=== PATIENT | female | born 1980 | race Caucasian/White ===

== ENCOUNTER 2018-10-24 09:02 | Emergency (ER) | payer BC, OTHER ==
[2018-10-24 10:33] LABS: Basophils % (A) 0 %; Eosinophils # (A) 0.2 k/uL (0-0.7); Eosinophils % (A) 3 %; HCT 39.4 % (34.0-46.0); HGB 12.6 gm/dL (11.4-16.0); Lymphocytes # (A) 1.4 k/uL (1.0-4.8); Lymphocytes % (A) 22 %; MCH 28.5 pg (25.0-35.0); MCHC 31.9 g/dL (31.0-37.0); MCV 89.2 fL (80.0-100.0); Mean Platelet Volume 8.6; Monocytes # (A) 0.3 k/uL (0-1.0); Monocytes % (A) 5 %; Neutrophils # (A) 4.3 k/uL (1.3-7.7); Neutrophils % (A) 68 %; Platelet Count 218 k/uL (150-450); RBC 4.42 m/uL (3.80-5.40); RDW 13.7 % (11.5-15.5); WBC 6.4 k/uL (3.8-10.6)
[2018-10-24 10:44] LABS: ALT 55 U/L (9-52); AST 36 U/L (14-36); Albumin 4.2 g/dL (3.5-5.0); Alkaline Phosphatase 55 U/L (38-126); Anion Gap 6 mmol/L; Blood Urea Nitrogen 12 mg/dL (7-17); Calcium 9.6 mg/dL (8.4-10.2); Carbon Dioxide 27 mmol/L (22-30); Chloride 108 mmol/L (98-107); Glucose 101 mg/dL (74-99); Magnesium 2.1 mg/dL (1.6-2.3); Potassium 4.9 mmol/L (3.5-5.1); Sodium 141 mmol/L (137-145); Total Bilirubin 0.5 mg/dL (0.2-1.3); Total Protein 6.7 g/dL (6.3-8.2)
--- NOTE | 2018-10-24 10:46 | ED ---
Chest Pain HPI - General Chief Complaint: Chest Pain Stated Complaint: chest pain Time Seen by Provider: 10/24/18 09:14 Source: patient, RN notes reviewed Mode of arrival: ambulatory Limitations: no limitations - History of Present Illness Initial Comments: This is a 38-year-old female with a benign past medical history she does have a family history of hypertension who states she's had for last several days intermittent episodes of sharp right-sided chest pain and radiates around to the left side of her chest area and she states was started she will be 4-5/10 severity gets as severe as 8-10/10 and goes away. Stenosis over last several days she does have shortness breath with it comes on she denies any pain right now no fevers chills nausea vomiting sweats no trauma he does state that she was helping her son learn how to ride a bike over this past weekend. She states she did a lot of bending over and twisting. MD Complaint: chest pain - Related Data Previous Rx's Medication Instructions Recorded Cyclobenzaprine [Flexeril] 10 mg PO TID #14 tab 10/24/18 Ketorolac [Toradol] 10 mg PO Q6HR #20 tab 10/24/18 Allergies Allergy/AdvReac Type Severity Reaction Status Date / Time No Known Allergies Allergy Verified 10/24/18 09:39 Review of Systems ROS Statement: Those systems with pertinent positive or pertinent negative responses have been documented in the HPI. ROS Other: All systems not noted in ROS Statement are negative. EKG Findings - EKG Results: EKG: interpreted by JANEL, sinus rhythm (Normal sinus rhythm of 61. Interval 174 QRS duration 12 QT since QTC 4:30/432 this is a normal-appearing EKG.) Past Medical History Past Medical History: No Reported History History of Any Multi-Drug Resistant Organisms: None Reported Past Surgical History: Adenoidectomy, Tonsillectomy Past Psychological History: No Psychological Hx Reported Smoking Status: Never smoker Past Alcohol Use History: None Reported Past Drug Use History: None Reported General Exam - General Exam Comments Initial Comments: This a well-developed well-nourished awake alert oriented 3 female Limitations: no limitations General appearance: alert, in no apparent distress Head exam: Present: atraumatic, normocephalic, normal inspection Eye exam: Present: normal appearance, PERRL, EOMI. Absent: scleral icterus, conjunctival injection, periorbital swelling ENT exam: Present: normal exam, mucous membranes moist Neck exam: Present: normal inspection, full ROM, other (No stridor JVD or bruits). Absent: tenderness, meningismus, lymphadenopathy Respiratory exam: Present: normal lung sounds bilaterally. Absent: respiratory distress, wheezes, rales, rhonchi, stridor Cardiovascular Exam: Present: regular rate, normal rhythm, normal heart sounds. Absent: systolic murmur, diastolic murmur, rubs, gallop, clicks GI/Abdominal exam: Present: soft, normal bowel sounds. Absent: distended, tenderness, guarding, rebound, rigid Extremities exam: Present: normal inspection, full ROM, normal capillary refill. Absent: tenderness, pedal edema, joint swelling, calf tenderness Back exam: Present: normal inspection Neurological exam: Present: alert, oriented X3, CN II-XII intact Psychiatric exam: Present: normal affect, normal mood Skin exam: Present: warm, dry, intact, normal color. Absent: rash Course Vital Signs 10/24/18 10/24/18 10/24/18 09:05 09:23 09:30 Temperature 98 F Pulse Rate 73 69 59 L Respiratory 16 14 11 L Rate Blood Pressure 155/101 136/78 O2 Sat by Pulse 100 98 99 Oximetry 10/24/18 10/24/18 10/24/18 09:37 10:00 10:30 Temperature Pulse Rate 74 69 Respiratory 18 31 H 9 L Rate Blood Pressure 136/78 132/78 O2 Sat by Pulse 99 99 Oximetry 10/24/18 10/24/18 10/24/18 11:00 12:00 12:30 Temperature Pulse Rate 61 71 62 Respiratory 12 13 14 Rate Blood Pressure 132/78 131/82 111/67 O2 Sat by Pulse 100 98 98 Oximetry Chest Pain MDM - MDM I did review the imaging and report no acute findings. Patient's presentation is somewhat myofascial pain likely intercostal rib pain secondary to the activities of pushing her son a bicycle a day or 2 prior to the event starting. The patient is pain-free at this time patient will be placed on muscle relaxants and anti-inflammatories. Disposition Clinical Impression: Chest wall syndrome, Myofascial pain on right side Disposition: HOME SELF-CARE Condition: Good Instructions (If sedation given, give patient instructions): Muscle Strain (DC), Musculoskeletal Pain (ED) Prescriptions: Cyclobenzaprine [Flexeril] 10 mg PO TID #14 tab Ketorolac [Toradol] 10 mg PO Q6HR #20 tab Is patient prescribed a controlled substance at d/c from ED?: No Referrals: Chaparro Pulido MD [Primary Care Provider] - 1-2 days
--- NOTE | 2018-10-24 10:50 | XR ---
EXAMINATION TYPE: XR chest 2V DATE OF EXAM: 10/24/2018 COMPARISON: NONE HISTORY: Chest pain for a few days. TECHNIQUE: Frontal and lateral views of the chest are obtained. FINDINGS: Overlying EKG leads are present. There is no focal air space opacity, pleural effusion, or pneumothorax seen. The cardiac silhouette size is within normal limits. The osseous structures are intact. IMPRESSION: No acute cardiopulmonary process.
[2018-10-24 11:02] LABS: D-Dimer 0.32 mg/L FEU (<0.60); INR 0.9 (<1.2); Prothrombin Time 10.1 sec (9.0-12.0)
[2018-10-24 11:03] LABS: Partial Thromboplastin Time 25.3 sec (22.0-30.0)
[2018-10-24 11:57] LABS: Amylase 31 U/L (30-110); Lipase 70 U/L (23-300)
[2018-10-24] MEDS ORDERED: KETOROLAC 30 MG/ML 1 ML VIAL IVP STA ×3 (12:00→12:20)
[2018-10-24 13:09] VITALS: BP 116/61; PULSE 75; RESP 18; TEMP 98.2
== END 2018-10-24 13:09 | disposition home or self-care (01) ==
LOC: EC 09:02
DX: R07.1 Chest pain on breathing (principal); M79.18 Myalgia, other site; Z82.49 Family history of ischemic heart disease and other diseases of the circulatory system; Z53.29 Procedure and treatment not carried out because of patient's decision for other reasons
CPT/HCPCS: 36415; 71046; 80053; 82150; 83690; 83735; 83880; 84484; 85025; 85379; 85610; 85730; 93005; 99285